=== PATIENT | female | born 1960 | race Caucasian/White ===

== ENCOUNTER 2024-02-01 16:22 | Emergency (ER) | payer OTHER ==
[2024-02-01 16:42] VITALS: BP 123/88; PULSE 94; RESP 19; TEMP 98.6; BMI 29.2
[2024-02-01 18:02] LABS: BASO % 0.5 % (0-2.0); HEMATOCRIT 40.9 % (32.4-45.2); HEMOGLOBIN 14.1 GM/dL (10.7-15.3); LYMPH % 15.6 % (8-40); MCH 30.9 pg (25.7-33.7); MCHC 34.5 g/dl (32.0-36.0); MEAN CELL VOLUME 89.3 fl (80-96); MEAN PLT VOLUME 8.7 fl (7.5-11.1); MONO % 6.3 % (3.8-10.2); NEUT % 75.6 % (42.8-82.8); PLATELET COUNT 276 10^3/uL (134-434); RBC 4.58 M/mm3 (3.60-5.2); RDW 13.8 % (11.6-15.6); WHITE BLOOD COUNT 8.6 K/mm3 (4.0-10.0)
[2024-02-01 18:08] LABS: INR 0.97 (0.83-1.09); PROTHROMBIN TIME (PATIENT) 11.2 SEC (9.7-13.0)
[2024-02-01 18:11] LABS: ACTIVATED PTT 37.5 SECONDS (25.2-36.5)
[2024-02-01 18:30] LABS: POTASSIUM 3.7 mmol/L (3.5-5.1)
[2024-02-01 18:33] LABS: ALBUMIN 3.8 g/dl (3.4-5.0); BLOOD UREA NITROGEN 30.2 mg/dL (7-18); CALCIUM 11.2 mg/dL (8.5-10.1)
[2024-02-01 18:37] LABS: CREATININE 1.2 mg/dL (0.55-1.3)
[2024-02-01 18:39] LABS: BILIRUBIN,TOTAL 0.3 mg/dL (0.2-1); TOT PROT 7.7 g/dl (6.4-8.2)
[2024-02-01] MEDS: ACETAMINOPHEN 1000 MG/100 ML BAG IVPB ONE (20:03)
[2024-02-01] MEDS ORDERED: KETOROLAC TROMETHAMINE 15 MG/ML VIAL ONE (21:29)
[2024-02-01] MEDS: KETOROLAC TROMETHAMINE 15 MG/ML VIAL IVPUSH ONE (21:30)
== END 2024-02-01 21:50 | disposition home or self-care (01) ==
LOC: JER 16:22
PROC: 3E0333Z Introduction of Anti-inflammatory into Peripheral Vein, Percutaneous Approach (ICD-10-PCS; principal; 2024-02-01)
PROC: 3E033NZ Introduction of Analgesics, Hypnotics, Sedatives into Peripheral Vein, Percutaneous Approach (ICD-10-PCS; 2024-02-01)
DX: R51.9 Headache, unspecified (principal); M54.9 Dorsalgia, unspecified; M79.606 Pain in leg, unspecified; M79.603 Pain in arm, unspecified; M25.539 Pain in unspecified wrist; V49.40XA Driver injured in collision with unspecified motor vehicles in traffic accident, initial encounter; Y92.410 Unspecified street and highway as the place of occurrence of the external cause
CPT/HCPCS: 36415; 70450-TC; 71260-TC; 72125-TC; 74177-TC; 80053; 84484; 85025; 85610; 85730; 86850; 86900; 86901; 99285-25; J0131; Q9967